=== PATIENT | female | born 1970 | race Asian ===

== ENCOUNTER → 2020-03-06 12:00 | Outpatient (CLI) | payer OTHER, SELFPAY | PROVIDERS: PCP Family Medicine; Visit Provider Family Medicine | DX: R10.9 Unspecified abdominal pain (principal) | CPT/HCPCS: 87086 ==

== ENCOUNTER → 2020-03-07 07:06 | Outpatient (CLI) | payer OTHER, SELFPAY ==
--- NOTE | 2020-03-07 07:06 | DI.US.S_ITS ---
PROCEDURE: US PELVIC COMPLETE INDICATIONS: PAIN TECHNIQUE: Real-time scanning was performed of the pelvic organs, with image documentation. Additional endovaginal scanning was necessary due to incomplete visualization of the adnexal and endometrial structures by transabdominal scanning. COMPARISON: Located Within [facility], , PELVIC COMPLETE, 04/15/2015, 16:28. FINDINGS: Transabdominal scanning: Limited scanning through the kidneys shows no hydronephrosis. No pathologic free abdominal or pelvic fluid. Endovaginal scanning: Uterus: Uterus is normal in size at 8.6 x 4.7 x 6.2 cm. The endometrium measures 3-4 mm in combined thickness. An IUD is seen at its expected location. Incidental note is made of nabothian cysts. Ovaries: The right ovary measures 4.3 x 2.9 x 3.7 cm and demonstrates a partially septated minimally complex cyst that measures 3.7 x 2.6 x 3.4 cm. The left ovary measures 4.9 x 2.2 x 2.3 cm and demonstrates 2 simple appearing cysts, the largest measures 2 cm. Also seen within the left ovary is a complex nonvascular cyst that measures up to 1.2 cm. No adnexal masses are seen on either side. IMPRESSION: Bilateral complex cysts are seen, including a 3.7 cm partially septated cyst involving the right ovary. At clinical discretion, a followup pelvic ultrasound could be considered in 6 weeks to assure resolution/ improvement. The IUD it is seen as expected location. Dictated by: Jarrett Youssef M.D. on 03/12/2020 at 9:51 Approved by: Jarrett Youssef M.D. on 03/12/2020 at 9:52
== END ==
PROVIDERS: PCP Family Medicine; Referring Provider Family Medicine; Visit Provider Family Medicine
DX: R10.2 Pelvic and perineal pain (principal); N83.291 Other ovarian cyst, right side; N83.292 Other ovarian cyst, left side; Z97.5 Presence of (intrauterine) contraceptive device
CPT/HCPCS: 76830; 76856

== ENCOUNTER → 2020-04-29 07:17 | Outpatient (CLI) | payer OTHER, SELFPAY ==
--- NOTE | 2020-04-29 07:41 | DI.US.S_ITS ---
PROCEDURE: US PELVIC COMPLETE INDICATIONS: FOLLOW-UP OVARIAN CYSTS TECHNIQUE: Real-time scanning was performed of the pelvic organs, with image documentation. Additional endovaginal scanning was necessary due to incomplete visualization of the adnexal and endometrial structures by transabdominal scanning. COMPARISON: [facility], US, ABDOMEN COMPLETE, 01/11/2014, 14:39. [facility], CT, CT KUB, 02/28/2020, 8:26. [facility], US, US PELVIC COMPLETE, 03/07/2020, 7:27. FINDINGS: Uterus: Uterus is normal in size at 8.3 x 4.9 x 5.2 cm. The endometrium measures 4 mm in combined thickness. An IUD is seen at its expected location. Ovaries: The right ovary measures 4.7 x 3.4 x 4.1 cm and demonstrates a complex partially septated cyst that measures 4.3 x 3.1 x 3.8 cm. Previously, this measured 3.7 x 2.6 x 3.4 cm. The left ovary measures 4.9 x 2 x 3.7 cm and demonstrates a simple cyst that measures 3 cm, which is considered to be within physiologic limits. Previously, this measured up to 2 cm. No adnexal masses are seen on either side. Other: No pathologic free abdominal or pelvic fluid. IMPRESSION: There is a growing complicated cyst involving the right ovary that now measures up to 4.3 cm. Please consider an additional follow-up ultrasound in 6-12 weeks for further evaluation. Dictated by: Jarrett Youssef M.D. on 04/29/2020 at 8:34 Approved by: Jarrett Youssef M.D. on 04/29/2020 at 8:36
== END ==
PROVIDERS: PCP Family Medicine; Referring Provider Family Medicine; Visit Provider Family Medicine
DX: N83.291 Other ovarian cyst, right side (principal); N83.292 Other ovarian cyst, left side
CPT/HCPCS: 76830; 76856

== ENCOUNTER → 2020-05-15 16:07 | Outpatient (CLI) | payer OTHER, SELFPAY ==
[2020-05-15 19:11] LABS: Cancer Antigen 125 < 5.5 U/mL (0-35)
== END ==
PROVIDERS: PCP Family Medicine; Referring Provider Family Medicine; Visit Provider Family Medicine
DX: N83.209 Unspecified ovarian cyst, unspecified side (principal)
CPT/HCPCS: 36415; 86304; 86305

== ENCOUNTER → 2020-06-04 07:18 | Outpatient (CLI) | payer OTHER, SELFPAY ==
--- NOTE | 2020-06-04 07:19 | DI.US.S_ITS ---
PROCEDURE: US PELVIC COMPLETE INDICATIONS: 6 WEEK FOLLOW-UP OVARIAN CYSTS TECHNIQUE: Real-time scanning was performed of the pelvic organs, with image documentation. Additional endovaginal scanning was necessary due to incomplete visualization of the adnexal and endometrial structures by transabdominal scanning. COMPARISON: [facility], , US PELVIC COMPLETE, 03/07/2020, 7:27. [facility], , PELVIC COMPLETE, 04/29/2020, 7:45. FINDINGS: Uterus: Uterus is normal in size at 9.5 x 4.9 x 6.4 cm. The endometrium measures 4 mm in combined thickness. An IUD is seen at its expected location. Ovaries: The right ovary measures 4.3 x 3 x 4.1 cm and demonstrates a partially septated complex cyst that measures 4 x 3 x 3.7 cm, which previously measured 4.3 x 3.1 x 3.8 cm. The left ovary measures 4.5 x 2 x 3.4 cm and demonstrates several cysts, the largest of which measures up to 2.2 cm. There is a solid-appearing 9 mm nonvascular nodule also seen involving the left ovary. Other: No pathologic free abdominal or pelvic fluid. IMPRESSION: Improved appearance of the previously seen complex cyst of the right ovary. Simple appearing cysts are seen on the left. There is a 9 mm solid appearing left ovarian nodule seen. Attention should be paid to this focus on any future follow-up studies. Dictated by: Jarrett Youssef M.D. on 06/04/2020 at 9:58 Approved by: Jarrett Youssef M.D. on 06/04/2020 at 10:01
== END ==
PROVIDERS: PCP Family Medicine; Referring Provider Family Medicine; Visit Provider Family Medicine
DX: N83.291 Other ovarian cyst, right side (principal); N83.202 Unspecified ovarian cyst, left side; N83.9 Noninflammatory disorder of ovary, fallopian tube and broad ligament, unspecified
CPT/HCPCS: 76856

== ENCOUNTER → 2020-07-16 16:06 | Outpatient (CLI) | payer OTHER, SELFPAY ==
--- NOTE | 2020-07-16 16:08 | DI.US.S_ITS ---
PROCEDURE: US PELVIC COMPLETE INDICATIONS: follow-up TECHNIQUE: Real-time scanning was performed of the pelvic organs, with image documentation. Additional endovaginal scanning was necessary due to incomplete visualization of the adnexal and endometrial structures by transabdominal scanning. COMPARISON: [facility], PELVIC COMPLETE, 04/29/2020, 7:45. [facility], PELVIC COMPLETE, 03/07/2020, 7:27. [facility], PELVIC COMPLETE, 06/04/2020, 7:31. FINDINGS: Uterus: Uterus is normal in size at 5.2 x 3.9 x 5.3 cm. An IUD is seen at its expected location. The IUD obscures the endometrial stripe, limiting its evaluation. Ovaries: The patient gives a history of prior right oophorectomy. There is a mildly complex right adnexal cyst seen that measures 3.9 x 4.2 x 3 cm. Previously, this measured 4 x 3 x 3.7 cm. The left ovary measures 2.5 x 5.2 x 1.9 cm. The previously seen small cystic nodule is no longer seen within the left ovary. A left ovarian cyst is seen that measures up to 2.1 cm, which is considered to be within physiologic limits. Other: No pathologic free abdominal or pelvic fluid. IMPRESSION: The previously seen left ovarian nodule has resolved. No significant change in size of the mildly complex right adnexal cyst. Dictated by: Jarrett Youssef M.D. on 07/16/2020 at 17:06 Approved by: Jarrett Youssef M.D. on 07/16/2020 at 17:09
== END ==
PROVIDERS: PCP Family Medicine; Referring Provider Family Medicine; Visit Provider Family Medicine
DX: N83.201 Unspecified ovarian cyst, right side (principal)
CPT/HCPCS: 76856

== ENCOUNTER → 2020-10-01 15:48 | Outpatient (CLI) | payer OTHER, SELFPAY ==
--- NOTE | 2020-10-01 15:50 | DI.US.S_ITS ---
PROCEDURE: US PELVIC COMPLETE INDICATIONS: FOLLOW UP RT CYST TECHNIQUE: Real-time scanning was performed of the pelvic organs, with image documentation. Additional endovaginal scanning was necessary due to incomplete visualization of the adnexal and endometrial structures by transabdominal scanning. COMPARISON: [facility], US, US PELVIC COMPLETE, 07/16/2020, 15:20. FINDINGS: Uterus: Uterus is normal in size at 8.3 x 4.9 x 4.7 cm. The endometrium measures 2 mm in combined thickness. Intrauterine device is within expected location. Right anterior intramural fibroid measuring 9 mm. Ovaries: Right ovary measures 44 mm diameter and demonstrates a 45 mm diameter cystic focus. Left ovary measures 45 mm diameter and demonstrates a 21 mm diameter cystic focus. Other: No pathologic free abdominal or pelvic fluid. IMPRESSION: Bilateral ovarian cyst. Follow-up ultrasound in 6 weeks is recommended to ensure resolution. Dictated by: Willem Lemus M.D. on 10/01/2020 at 16:58 Approved by: Willem Lemus M.D. on 10/01/2020 at 17:00
== END ==
PROVIDERS: PCP Family Medicine; Referring Provider Family Medicine; Visit Provider Family Medicine
DX: N83.201 Unspecified ovarian cyst, right side (principal); N83.202 Unspecified ovarian cyst, left side; Z97.5 Presence of (intrauterine) contraceptive device
CPT/HCPCS: 76830; 76856

== ENCOUNTER → 2020-10-23 15:02 | Outpatient (CLI) | payer OTHER, SELFPAY ==
--- NOTE | 2020-10-23 15:03 | DI.MG.S_ITS ---
BILATERAL DIGITAL SCREENING MAMMOGRAM 3D/2D WITH CAD: 10/23/2020 CLINICAL: Routine screening. Comparison is made to exam dated: 04/15/2015 [facility]. The tissue of both breasts is extremely dense, which lowers the sensitivity of mammography. Current study was also evaluated with a Computer Aided Detection (CAD) system. No significant masses, calcifications, or other findings are seen in either breast. There has been no significant interval change. IMPRESSION: NEGATIVE There is no mammographic evidence of malignancy. A 1 year screening mammogram is recommended. This exam was interpreted at Station ID: [id number]. NOTE: For mammograms, a report in lay terms will be sent to the patient. Approximately 15% of breast malignancies will not be visualized mammographically. In the management of a palpable breast mass, a negative mammogram must not discourage biopsy of a clinically suspicious lesion. Electronically Signed By: German arora/salomon:10/23/2020 17:03:23 letter sent: Normal Exam ACR BI-RADS Category 1: Negative 3341F
== END ==
PROVIDERS: PCP Family Medicine; Referring Provider Family Medicine; Visit Provider Family Medicine
DX: Z12.31 Encounter for screening mammogram for malignant neoplasm of breast (principal)
CPT/HCPCS: 77063; 77067

== ENCOUNTER → 2021-01-01 15:44 | Outpatient (CLI) | payer OTHER, SELFPAY ==
--- NOTE | 2021-01-01 15:47 | DI.US.S_ITS ---
PROCEDURE: US PELVIC COMPLETE INDICATIONS: 3 MONTH FOLLOW UP TECHNIQUE: Real-time scanning was performed of the pelvic organs, with image documentation. Additional endovaginal scanning was necessary due to incomplete visualization of the adnexal and endometrial structures by transabdominal scanning. COMPARISON: [facility], US, US PELVIC COMPLETE, 10/01/2020, 15:25. FINDINGS: Uterus: Uterus is normal in size at 7.0 x 4.9 x 3.6 cm. The endometrium measures 2.0 mm in combined thickness. IUD is seen within the fundal aspect of the uterus. Previously seen fibroid is Now demonstrating a cystic appearance measuring 8 mm. Ovaries: Status post right oophorectomy. There is a complex cystic focus within the right adnexa measuring roughly 43 mm. Possible nodular focus is present within this lesion. Left ovary is within normal limits. Other: No pathologic free abdominal or pelvic fluid. IMPRESSION: 1. IUD is in a appropriate location. 2. Right adnexal cyst. Follow-up ultrasound in 6 weeks is recommended to ensure resolution, and to exclude underlying neoplasm. Dictated by: Willem Lemus M.D. on 01/01/2021 at 16:58 Approved by: Willem Lemus M.D. on 01/01/2021 at 17:00
--- NOTE | 2021-01-01 15:47 | DI.RAD.S_ITS ---
PROCEDURE: XR SHOULDER LT MIN 2V INDICATIONS: left shoulder pain TECHNIQUE: 3 views of the shoulder were acquired. COMPARISON: None. FINDINGS: Bones: No fractures or dislocations. Mild to moderate acromioclavicular joint and glenohumeral joint osteoarthritic changes are seen. No suspicious bony lesions. Visualized ribs appear intact. Soft tissues: No suspicious soft tissue calcifications. IMPRESSION: Mild to moderate left shoulder joint osteoarthritis. No fracture or dislocation. Dictated by: Nilton Hoyos M.D. on 01/01/2021 at 17:15 Approved by: Nilton Hoyos M.D. on 01/01/2021 at 17:15
[2021-01-01 19:49] LABS: Cancer Antigen 125 < 5.5 U/mL (0-35)
[2021-01-03 12:35] LABS: Human Epididymis Prot 4 36.9 pmol/L (0.0-63.6)
== END ==
PROVIDERS: PCP Family Medicine; Referring Provider Family Medicine; Visit Provider Family Medicine
DX: N83.201 Unspecified ovarian cyst, right side (principal); M25.512 Pain in left shoulder; M75.02 Adhesive capsulitis of left shoulder; M19.012 Primary osteoarthritis, left shoulder; Z97.5 Presence of (intrauterine) contraceptive device
CPT/HCPCS: 36415; 73030; 76830; 76856; 86304; 86305

== ENCOUNTER → 2021-03-31 12:57 | Outpatient (CLI) | payer OTHER, SELFPAY ==
[2021-03-31 13:47] LABS: COVID19 -Nasal RAPID Negative (Negative)
== END ==
PROVIDERS: PCP Family Medicine; Referring Provider Nurse Practitioner Family; Visit Provider Nurse Practitioner Family
DX: Z20.822 Contact with and (suspected) exposure to COVID-19 (principal)
CPT/HCPCS: 87635

== ENCOUNTER → 2022-06-24 15:42 | Outpatient (CLI) | payer OTHER, SELFPAY | PROVIDERS: PCP Family Medicine; Visit Provider Nurse Practitioner Family | DX: J02.9 Acute pharyngitis, unspecified (principal) | CPT/HCPCS: 87070; 87077; 87147 ==

== ENCOUNTER → 2023-04-23 06:26 | Outpatient (CLI) | payer OTHER, SELFPAY ==
[2023-04-23 09:28] LABS: Add Manual Diff / Slide Review NO; Basophils Absolute Auto 100 /uL (0-100); Basophils Percent Auto 1.1 % (0-2); Eosinophils Absolute Auto 0 /uL (0-450); Eosinophils Percent Auto 0.7 % (2-4); Hemoglobin 12.4 g/dL (12.0-16.0); Lymphocytes Absolute Auto 2000 /uL (1100-4500); Lymphocytes Percent Auto 41.7 % (25-40); Mean Corpuscular HGB Conc 34.4 % (30-36); Mean Corpuscular Hemoglobin 30.5 PG (26-34); Mean Corpuscular Volume 88.6 fL (80-100); Monocytes Absolute Auto 300 /uL (0-900); Monocytes Percent Auto 6.2 % (3-14); Neutrophils Absolute Auto 2400 /uL (1500-7000); Neutrophils Percent Auto 50.3 % (50-75); Platelet Count 350 X10^3/uL (150-400); Red Blood Cell Count 4.07 X10^6/uL (4.0-5.2); Red Cell Distribution Width 12.1 % (11.6-14.8); White Blood Cell Count 4.8 X10^3/uL (4.5-11.0)
[2023-04-23 09:50] LABS: Alanine Aminotransferase 18 IU/L (<35); Albumin 4.6 g/dL (3.5-5.0); Albumin Globulin Ratio 1.5 (1.0-2.8); Alkaline Phosphatase 44 U/L (38-126); Aspartate Aminotransferase 28 IU/L (14-36); Blood Urea Nitrogen 15 mg/dL (7-17); Calcium 9.7 mg/dL (8.4-10.2); Carbon Dioxide 27 mmol/L (22-32); Chloride 101 mmol/L (98-107); Cholesterol 238 mg/dL (140-199); Estimated Glomerular Filt Rate > 60 mL/min (>60); Glucose 79 mg/dL (70-100); HDL Cholesterol 72 mg/dL (40-60); HEMOLYSIS < 15 (0-50); Iron 158 ug/dL (37-170); LDL Cholesterol Calculated 153 mg/dL (<100); Potassium 3.9 mmol/L (3.4-5.1); Sodium 137 mmol/L (137-145); Total Protein 7.6 g/dL (6.3-8.2); Triglycerides 64 mg/dL (35-150)
[2023-04-23 10:20] LABS: TSH w/ Reflex to FT4 1.51 uIU/mL (0.47-4.68)
[2023-04-23 10:23] LABS: Ferritin 74 ng/mL (11-264)
== END ==
PROVIDERS: PCP Family Medicine; Referring Provider Family Medicine; Visit Provider Family Medicine
DX: Z13.9 Encounter for screening, unspecified (principal); L65.9 Nonscarring hair loss, unspecified
CPT/HCPCS: 36415; 80053; 80061; 82728; 83540; 84443; 85025

== ENCOUNTER → 2023-05-14 17:41 | Outpatient (CLI) | payer OTHER, SELFPAY ==
--- NOTE | 2023-05-14 17:42 | DI.MG.S_ITS ---
BILATERAL DIGITAL SCREENING MAMMOGRAM 3D/2D WITH CAD: 05/14/2023 CLINICAL: Routine screening. Comparison is made to exams dated: 10/23/2020 mammogram and 04/15/2015 mammogram - [facility]. Both breasts are extremely dense, which lowers the sensitivity of mammography (category d />75% glandular tissue). Current study was also evaluated with a Computer Aided Detection (CAD) system. No significant masses, calcifications, or other findings are seen in either breast. There has been no significant interval change. IMPRESSION: NEGATIVE There is no mammographic evidence of malignancy. A 1 year screening mammogram is recommended. Based on Tyrer-Cuzick model (a risk assessment model), the patient's lifetime risk is 20.4% and her 10 year risk is 5.5%. If a patient has an elevated risk, a more comprehensive evaluation should be considered and/or a referral to a genetic counselor. The [employer], [employer], and NCCN Guidelines advise the consideration of Breast MRI as an adjunct to screening mammography in patients whose Lifetime risk to develop breast cancer is 20% or higher. This exam was interpreted at Station ID: [id number]. NOTE: For mammograms, a report in lay terms will be sent to the patient. Approximately 15% of breast malignancies will not be visualized mammographically. In the management of a palpable breast mass, a negative mammogram must not discourage biopsy of a clinically suspicious lesion. Electronically Signed By: Deandre francisco/salomon:05/17/2023 18:02:20 letter sent: Normal Exam ACR BI-RADS Category 1: Negative 3341F
== END ==
LOC: MAMMO 17:41
PROVIDERS: PCP Family Medicine; Referring Provider Family Medicine; Visit Provider Family Medicine
DX: Z12.31 Encounter for screening mammogram for malignant neoplasm of breast (principal); R92.343 Mammographic extreme density, bilateral breasts
CPT/HCPCS: 77063; 77067

== ENCOUNTER → 2024-06-17 08:39 | Outpatient (CLI) | payer OTHER, SELFPAY ==
[2024-06-17 09:26] LABS: Add Manual Diff / Slide Review NO; Basophils Absolute Auto 100 /uL (0-100); Basophils Percent Auto 1.2 % (0-2); Eosinophils Absolute Auto 0 /uL (0-450); Eosinophils Percent Auto 0.9 % (2-4); Hemoglobin 12.5 g/dL (12.0-16.0); Lymphocytes Absolute Auto 1800 /uL (1100-4500); Lymphocytes Percent Auto 43.2 % (25-40); Mean Corpuscular HGB Conc 33.9 % (30-36); Mean Corpuscular Hemoglobin 30.7 PG (26-34); Mean Corpuscular Volume 90.6 fL (80-100); Monocytes Absolute Auto 200 /uL (0-900); Monocytes Percent Auto 5.8 % (3-14); Neutrophils Absolute Auto 2000 /uL (1500-7000); Neutrophils Percent Auto 48.9 % (50-75); Platelet Count 326 X10^3/uL (150-400); Red Blood Cell Count 4.09 X10^6/uL (4.0-5.2); Red Cell Distribution Width 12.6 % (11.6-14.8); White Blood Cell Count 4.1 X10^3/uL (4.5-11.0)
[2024-06-17 09:42] LABS: Alanine Aminotransferase 25 IU/L (<35); Albumin 4.8 g/dL (3.5-5.0); Albumin Globulin Ratio 1.8 (1.0-2.8); Alkaline Phosphatase 44 U/L (38-126); Aspartate Aminotransferase 31 IU/L (14-36); BUN Creatinine Ratio 23.1 (6-22); Bilirubin Total 0.9 mg/dL (0.2-1.3); Blood Urea Nitrogen 15 mg/dL (7-17); Calcium 9.9 mg/dL (8.4-10.2); Carbon Dioxide 28 mmol/L (22-32); Chloride 104 mmol/L (98-107); Cholesterol 195 mg/dL (140-199); Estimated Glomerular Filt Rate > 60 mL/min (>60); Globulin 2.7 g/dL (1.7-4.1); Glucose 91 mg/dL (70-100); HDL Cholesterol 61 mg/dL (40-60); HEMOLYSIS < 15 (0-50); LDL Cholesterol Calculated 122 mg/dL (<100); Potassium 4.4 mmol/L (3.4-5.1); Sodium 140 mmol/L (137-145); Total Protein 7.5 g/dL (6.3-8.2); Triglycerides 60 mg/dL (35-150)
== END ==
LOC: LAB 08:39
PROVIDERS: PCP Family Medicine; Referring Provider Family Medicine; Visit Provider Family Medicine
DX: R42 Dizziness and giddiness (principal); E78.5 Hyperlipidemia, unspecified; L65.9 Nonscarring hair loss, unspecified
CPT/HCPCS: 36415; 80053; 80061; 85025

== ENCOUNTER → 2025-01-08 07:54 | Outpatient (CLI) | payer OTHER, SELFPAY ==
[2025-01-08 08:19] LABS: Add Manual Diff / Slide Review NO; Hematocrit 38.0 % (36-46); Hemoglobin 13.1 g/dL (12.0-16.0); Lymphocytes Absolute Auto 1900 /uL (1100-4500); Mean Corpuscular HGB Conc 34.5 % (30-36); Mean Corpuscular Hemoglobin 30.9 PG (26-34); Mean Corpuscular Volume 89.4 fL (80-100); Platelet Count 378 X10^3/uL (150-400)
[2025-01-08 08:26] LABS: Hemoglobin A1C% w Est Avg Glu 5.4 % (4.0-6.0)
[2025-01-08 08:34] LABS: Alanine Aminotransferase 23 IU/L (<35); Albumin 5.1 g/dL (3.5-5.0); Albumin Globulin Ratio 1.8 (1.0-2.8); Alkaline Phosphatase 50 U/L (38-126); Blood Urea Nitrogen 7 mg/dL (7-17); Calcium 9.6 mg/dL (8.4-10.2); Carbon Dioxide 28 mmol/L (22-32); Chloride 104 mmol/L (98-107); Cholesterol 225 mg/dL (140-199); Estimated Glomerular Filt Rate > 60 mL/min (>60); Globulin 2.9 g/dL (1.7-4.1); Glucose 93 mg/dL (70-99); HDL Cholesterol 77 mg/dL (40-60); HEMOLYSIS < 15 (0-50); Potassium 4.4 mmol/L (3.4-5.1); Sodium 140 mmol/L (137-145); Total Protein 8.0 g/dL (6.3-8.2); Triglycerides 117 mg/dL (35-150)
[2025-01-08 08:51] LABS: Vitamin D 25 Hydroxy (D3) 23.4 ng/mL (30.0-100.0)
[2025-01-08 09:12] LABS: TSH w/ Reflex to FT4 1.51 uIU/mL (0.47-4.68)
== END ==
PROVIDERS: PCP Family Medicine; Referring Provider Family Medicine; Visit Provider Family Medicine
DX: E78.5 Hyperlipidemia, unspecified (principal); N94.6 Dysmenorrhea, unspecified; Z13.0 Encounter for screening for diseases of the blood and blood-forming organs and certain disorders involving the immune mechanism; Z13.21 Encounter for screening for nutritional disorder; Z13.228 Encounter for screening for other metabolic disorders; Z13.29 Encounter for screening for other suspected endocrine disorder; Z13.1 Encounter for screening for diabetes mellitus
CPT/HCPCS: 36415; 80053; 80061; 82306; 83036; 84443; 85025

== ENCOUNTER → 2025-02-12 09:14 | Outpatient (CLI) | payer OTHER, SELFPAY ==
--- NOTE | 2025-02-12 09:15 | DI.MG.S_ITS ---
MM screening mammo BI: 02/12/2025. BI-RADS: 1 CLINICAL: 55-year old female for bilateral screening mammogram. Tyrer-Cuzick lifetime risk of 11.8%. No personal or first-degree family history of breast cancer. PRIOR EXAMS 05/14/2023, 10/23/2020, 04/15/2015. MAMMOGRAPHY TECHNIQUE: 2D and 3D (tomosynthesis) digital mammographic views obtained, with additional images as needed for full coverage. Current study was also evaluated with a Computer Aided Detection (CAD) system. DENSITY D. The breasts are extremely dense, which lowers the sensitivity of mammography. MAMMOGRAPHY FINDINGS Bilateral: No suspicious mass, asymmetry, microcalcification, or other abnormality seen. IMPRESSION: * No evidence of malignancy. RECOMMENDATIONS Bilateral * Annual screening mammography. OVERALL ASSESSMENT CATEGORY BI-RADS-1: Negative. The [employer] recommends annual screening mammography beginning at age 40 for women with average risk of breast cancer. ELECTRONICALLY SIGNED: Gabriella Curry M.D. on 02/13/2025 at 09:56:01 PM PT Interpreting Station ID: [id number]
== END ==
LOC: MAMMO 09:15
PROVIDERS: PCP Family Medicine; Referring Provider Family Medicine; Visit Provider Family Medicine
DX: Z12.31 Encounter for screening mammogram for malignant neoplasm of breast (principal)
CPT/HCPCS: 77063; 77067